=== PATIENT | male | born 1950 | race Caucasian/White ===

== ENCOUNTER 2023-03-07 22:02 | Emergency (ER) | payer BC, SELFPAY ==
--- NOTE | 2023-03-07 22:00 | DI.CT_ITS ---
Exam(s) CT CAROTID NECK CTA EXAM: CT CAROTID NECK CTA CLINICAL HISTORY: dog bit throat. TECHNIQUE: Imaging Protocol: Axial CT angiography was performed with multi-slice acquisition and mu lti-planar and/or 3D reconstructions. CONTRAST MATERIAL: Intravenous: Omnipaque 350 Contrast volume:structured data in ml COMPARISON: No exams were available for comparison FINDINGS: CTA NECK W: AORTIC ARCH ANATOMY: Conventional Anterior circulation: Both common carotid arteries ascend with normal luminal diameters. Vessels are intact. No significa nt plaque at the carotid bifurcations and proximal internal carotid arteries and the internal carotid arteries are patent in the upper neck and skull base. No vascular injury evident of these vessels Posterior circulation: Both vertebral arteries originate in conventional fashion off the subclavian arteries and ascend with normal luminal diameters in the foramen transversarium. No evidence of intraluminal thrombus nor di ssection. No significant injury of these vessels evident. At the skull base both vertebral arteries contribute to the formation of the basilar artery. Other: There is soft tissue laceration subjacent to both sides of the mandible and there is air-gas w ithin the submandibular soft tissues in the mandible region as well as on the left side of the neck. No evidence of obvious acute vascular injury. No abscess evident at this time. No obvious radiopaq ue foreign body. IMPRESSION: 1. Prominent soft tissue air-gas but no evidence of significant vascular arterial injury of the helton tid and vertebral arteries. 2. Other findings as above. 3. Follow-up recommended to rule out any developing infection. RADIATION DOSE DELIVERED: 353.2mGy.cm Total DLP DATA REPOSITORY: All CT scans at this facility are submitted to the National Radiology Data Registry (NRDR) Dose Index Registry (DIR) with the [employer] (A[employer]). RADIATION OPTIMIZATION: All CT scans at this facility use at least one of these dose optimization te chniques: automated exposure control; mA and/or kV adjustment per patient size (includes targeted exa ms where dose is matched to clinical indication); or iterative reconstruction.
[2023-03-07 22:08] VITALS: BP 156/68; PULSE 61; RESP 17; TEMP 36.6; O2SAT 98
--- OUTSIDE RECORDS SUMMARY | 2023-03-07 22:25 | XMS_ITS | Continuity of Care Document ---
Author Name Unknown Organization [facility] Address [address] [place] [address] Phone [phone] Care Team Providers Care Language Tutor Name Role Phone YECENIA MAYFIELD M.D. Care Team Information Rec eiver Unavailable Social History Type Date Description Comments Sex Unknown
--- NOTE | 2023-03-07 22:26 | NUR.NOTE ---
Addendum entered by Maureen Maldonado 03/09/23 08:27: 03/09/23 spoke to Sarabjit Reina [facility] and he is aware of the report. Report faxed to Tatiana Carrillo at his request. Original Note: Animal Bite Form faxed to [facility] Clerk, will call health officer on 03/08/23 to report due to hour of ed visit.Nursing Note:
[2023-03-07] MEDS: cefTRIAXone 1 GM VIAL IV (22:30)
[2023-03-07] MEDS: Normal Saline 50 ML (22:31)
[2023-03-07 22:36] LABS: Abs Immature Grans 0.02 10^3/uL (0.0-0.06); Absolute Basophil Count 0.08 10^3/uL (0.0-0.2); Absolute Eosinophil Count 0.27 10^3/uL (0.0-0.7); Absolute Lymphocyte Count 3.43 10^3/uL (1.2-3.4); Absolute Monocyte Count 1.06 10^3/uL (0.1-0.8); Absolute Neutrophil Count 4.61 10^3/uL (1.2-6.7); Basophils % 0.8; Eosinophils % 2.9; HGB 14.5 g/dL (13.5-17.5); Immature Grans % 0.2; Lymphocytes % 36.2; MCH 29.5 pg (27.0-33.0); MCV 90 fL (80-95); Monocytes % 11.2; Neutrophils % 48.7; Platelet Count 235 10^3/uL (130-400); RBC 4.91 10^6/uL (4.36-5.78); RDW 12.9 % (11.8-14.1); RDW-SD 42.9 fL; WBC 9.47 10^3/uL (4.4-10.8)
--- NOTE | 2023-03-07 22:52 | NUR.NOTE ---
Nursing Note: RN washed out wounds on the neck with 1L of NS. No bleeding noted at this time.
[2023-03-07 22:55] LABS: ALT 29 U/L (16-63); AST 25 U/L (15-37); Albumin 3.7 g/dL (3.4-5.0); Alkaline Phosphatase 70 U/L (46-116); Anion Gap 11.3 mmol/L (3-11); BUN 13 mg/dL (7-18); Bilirubin, Total 0.5 mg/dL (0.2-1.0); CO2 24.7 mmol/L (21.0-32.0); CREATININE 0.8 mg/dL (0.70-1.30); Calcium 7.3 mg/dL (8.5-10.1); Chloride 110 mmol/L (98-107); Estimated GFR 95.21 (mL/min/1.73m2); Glucose 91 mg/dL (74-106); Potassium 3.4 mmol/L (3.5-5.1); Sodium 146 mmol/L (136-145); Total Protein 6.4 g/dL (6.4-8.2)
[2023-03-07] MEDS: Omnipaque 350 MG/ML 100 ML BTL IJ (23:01)
[2023-03-07] MEDS: Normal Saline - Diluent 50 ML VIAL IJ (23:02)
--- NOTE | 2023-03-07 23:37 | ED.GENADUL_ITS ---
Discharge Plan Disposition Patient Disposition: Home Discharge Details Clinical Impression: Animal bite Primary Care Provider: [place],Local ED Provider: Minh Silverio Home Meds and New Rx's Prescriptions: New amoxicillin-pot clavulanate 875-125 mg tablet 1 tab PO Q8H 10 Days Qty: 30 0RF Discharge Instructions Instructions: Animal Bite (ED) Additional Instructions: Stable removal in 10 days Medical Decision Making Patient with multiple puncture wounds to the anterior neck. They all appear superficial. However given the proximity to the vasculature of the neck into the airway will obtain CT angio of the neck to rule out vascular injury. Possible injury to one of the thyroid arteries. Bleeding has been controlled. We will instruct the nurse to irrigate the wound and will consider loose approximation if absolutely necessary. Will administer dose of Rocephin IV and likely discharge patient on antibiotics if there is no vascular or structural injury of significance. Differential Diagnosis Differential Diagnosis: Carotid injury/tracheal injury/thyroid injury/dog bite Imaging Data Radiologic Study: Imaging: CT Scan My impression: No obvious vascular injury, plenty of subcutaneous gas HPI General Date/Time Provider Initiated Documentation: 03/07/23 22:12 . HPI Narrative: Patient was reaching down to interact with the dog when the dog bit him in the neck. This happened just before arrival. He had excessive bleeding and used compression to control the bleeding. By the time he arrived to the emergency department there is no further bleeding. Did not irrigate the wound before arrival. No pulsatile bleeding noted. No airway compromise or issues. No sensation of liquid inside the pharynx such as from bleeding. Related Data Home Medications Medication Instructions Recorded Confirmed amoxicillin 875 mg-potassium 1 tab PO Q8H 10 days #30 tabs 03/08/23 clavulanate 125 mg tablet Previous Rx's Medication Instructions Recorded amoxicillin 875 mg-potassium 1 tab PO Q8H 10 days #30 tabs 03/08/23 clavulanate 125 mg tablet General Stated Complaint: AnimalBite AMY: 3 Review of Systems Narrative: CONST: Negative for fever, body aches and chills. HENT: Negative for neck pain/stiffness, headache, congestion, sore throat, swelling. EYES: Negative for discharge/pain or vision changes. RESP: Negative for cough/hemoptysis and shortness of breath. CV: Negative chest pain, difficulty breathing, palpitations. ABD: Negative pain, nausea, vomiting. : Negative increase frequency, dysuria, blood in urine or stool. MUSC: Negative for muscle aches, edema. SKIN: NEURO: Negative headache, dizziness, weakness. PFSH All Active Problems (Updated 03/07/23 @ 23:42 by Minh Silverio MD) Animal bite (Acute) Social History Smoking/Tobacco Use Status: Never Smoking risk assessment performed?: Yes Alcohol Intake: current Alcohol Intake frequency: a few times a week Drug use: Occasionally Substance use type: marijuana Do you feel safe at home: Yes Do you feel safe in your relationship?: Yes Exam Narrative Exam Narrative: GENERAL APPEARANCE NAD, activity normal for age, well developed/ well nourished, no cyanosis, pallor, or diaphoresis. EYES lids/conjunctiva normal. EARS/NOSE/THROAT Mucous membranes moist, nares normal, lips/teeth normal uvula midline without oral pharyngeal erythema, exudate or swelling No lymphangitis/lymphedema. HEAD/NECK no evident arterial bleed. No stridor. No gross deformity. No obvious hematoma or ecchymosis. RESPIRATORY respiratory effort normal, speaks in full sentences, no tripod position, no accessory muscle use. Lungs clear to auscultation without rhonchi, wheezes, rales CARDIAC Regular rate and rhythm, no edema. ABDOMINAL Soft, ND/NT. No evidence of fluid wave. No pulsatile masses on exam, rebound tenderness, De Jesus sign or pain over Mcburney's point. MUSCLES/EXTREMITIES No abnormal range of motion, no swelling. SKIN multiple lacerations over the anterior mandible and anterior neck. Largest wound over the right anterior neck. NEUROLOGICAL Speech is clear and appropriate. Normal level of consciousness. Gait and coordination are normal. 5/5 strength in all extremities. PSYCH Normal mood and affect. Judgement/competence is appropriate Course Reevaluation(s) Time: 00:18 Reevaluation: CT scan of the neck did not show any injury to vascular structures or to the airway. Patient tolerated laceration closure well it was left loose on purpose given the degree of contamination. We will discharge patient home on Augmentin and he will get a tetanus booster now. Vital Signs Vital signs: Vital Signs Temperature 36.6 C 03/07/23 22:08 Pulse 61 03/07/23 22:08 Respiratory Rate 17 03/07/23 22:08 Blood Pressure 156/68 H 03/07/23 22:08 Pulse Oximetry 98 03/07/23 22:08 Temperature 36.6 C 03/07/23 22:08 Temperature Source Temporal Artery Scan 03/07/23 22:08 Pulse 61 03/07/23 22:08 Respiratory Rate 17 03/07/23 22:08 Respiratory Effort Normal 03/07/23 22:12 Blood Pressure 156/68 H 03/07/23 22:08 Blood Pressure Position Sitting 03/07/23 22:08 Pulse Oximetry 98 03/07/23 22:08 Oxygen Delivery Method Room Air 03/07/23 22:08 Oxygen Flow Rate 0 03/07/23 22:08 Pain Level 5 03/07/23 22:08 Lab/Test Results Lab/Test Results: Laboratory Tests Range/Units 03/07/23 03/07/23 22:25 22:25 WBC (4.4-10.8) 10^3/uL 9.47 RBC (4.36-5.78) 10^6/uL 4.91 Hgb (13.5-17.5) g/dL 14.5 Hct (40.0-50.0) % 44.0 MCV (80-95) fL 90 MCH (27.0-33.0) pg 29.5 MCHC (32.0-36.0) % 33.0 RDW (11.8-14.1) % 12.9 Plt Count (130-400) 10^3/uL 235 MPV (8.0-11.0) fL 10.0 Immature Gran % 0.2 Neutrophils % 48.7 Lymphocytes % 36.2 Monocytes % 11.2 Eosinophils % 2.9 Basophils % 0.8 Nucleated RBC % (0.0-0.3) % 0.0 Absolute Neutrophils (1.2-6.7) 10^3/uL 4.61 Absolute Lymphocytes (1.2-3.4) 10^3/uL 3.43 H Absolute Monocytes (0.1-0.8) 10^3/uL 1.06 H Absolute Eosinophils (0.0-0.7) 10^3/uL 0.27 Absolute Basophils (0.0-0.2) 10^3/uL 0.08 Sodium (136-145) mmol/L 146 H Potassium (3.5-5.1) mmol/L 3.4 L Chloride (98-107) mmol/L 110 H Carbon Dioxide (21.0-32.0) mmol/L 24.7 Anion Gap (3-11) mmol/L 11.3 H BUN (7-18) mg/dL 13 Creatinine (0.70-1.30) mg/dL 0.8 Est GFR (CKD-EPI 2020) (mL/min/1.73m2) 95.21 Glucose (74-106) mg/dL 91 Calcium (8.5-10.1) mg/dL 7.3 L Total Bilirubin (0.2-1.0) mg/dL 0.5 AST (15-37) U/L 25 ALT (16-63) U/L 29 Alkaline Phosphatase (46-116) U/L 70 Total Protein (6.4-8.2) g/dL 6.4 Albumin (3.4-5.0) g/dL 3.7 Procedures Laceration Laceration 1: Site: neck Side (If applicable): right Size (cm): 2 Description: flap Depth: simple, single layer Local Anesthetic: Lidocaine 1% Amount of anesthesia used (mL): 1 Pre-repair: irrigated extensively and deep structures intact Skin layer closed with: other (2 emilee)
--- NOTE | 2023-03-07 23:39 | DI.VRAD_ITS ---
PROCEDURE INFORMATION: Exam: CTA Neck With Contrast Exam date and time: 03/07/2023 11:03 PM Age: 72 years old Clinical indication: Injury or trauma; Crushing and puncture and wound, open; Not specified; Neck; Injury date: 03/07/23; Injury details: Dog bite to throat TECHNIQUE: Imaging protocol: Computed tomographic angiography of the neck with contrast. 3D rendering (Not supervised by radiologist): MIP and/or 3D reconstructed images were created by the technologist. Contrast material: OMNIPAQUE 350; Contrast volume: 85 ml; Contrast route: INTRAVENOUS (IV); COMPARISON: No relevant prior studies available. FINDINGS: Right common carotid artery: Normal. No stenosis. No dissection or occlusion. Right internal carotid artery: Mild tortuosity. No stenosis. No dissection or occlusion. Right external carotid artery: Normal. No stenosis. No dissection or occlusion. Left common carotid artery: Normal. No stenosis. No dissection or occlusion. Left internal carotid artery: Mild tortuosity. No stenosis. No dissection or occlusion. Left external carotid artery: Normal. No stenosis. No dissection or occlusion. Right vertebral artery: Normal. No stenosis. No dissection or occlusion. Left vertebral artery: Mild proximal tortuosity. No stenosis. No dissection or occlusion. Brachiocephalic artery: The brachiocephalic artery is unremarkable. Right subclavian artery: The right subclavian artery is unremarkable. Left subclavian artery: The left subclavian artery is unremarkable. Aorta: The visualized aortic arch demonstrates mild-moderate ectasia/tortuosity without evidence of dissection or gross aneurysm. Paranasal sinuses: Mucous retention cyst versus polyp formation in the left maxillary sinus suggesting mild chronic sinus inflammatory disease. No fluid levels. Visualized paranasal sinuses are otherwise clear. Thyroid: The thyroid gland is unremarkable. Soft tissues: Soft tissue swelling and laceration around the left jaw line and under the chin with air tracking into the submandibular space bilaterally consistent with penetration of the platysma musculature, with a small subcutaneous hematoma on series 5, image 395 measuring 2 x 1.3 x 0.7 cm, estimated volume 2 mL. No penetration of the sublingual space. No retained foreign body. No evidence of active hemorrhage or pseudoaneurysm. Bones/joints: No acute osseous abnormalities are identified. Moderate disc degenerative changes C4-C5 through C6-C7. Slight degenerative anterolisthesis C2-C3 and C3-C4, with moderate left-sided osteoarthritic facet hypertrophy C3-C4. Mild canal stenosis C5-C6. Moderate-severe bilateral foraminal stenoses C3-C4 through C6-C7. Lungs: The visualized pulmonary apices are clear. IMPRESSION: 1. No vascular injuries. No evidence of arterial occlusion, significant stenosis, dissection, or aneurysm/pseudoaneurysm. No evidence of active hemorrhage. 2. Soft tissue laceration and swelling around the left jaw line and below the chin consistent with the history of dog bite injury, which penetrates into the submandibular space but does not penetrate the sublingual space. No retained foreign bodies. Small subcutaneous hematoma of about 2 mL. REFERENCES: NASCET CRITERIA. The degree of stenosis in the cervical segment of the internal carotid artery is based on NASCET criteria. Normal is no stenosis. Mild is less than 50% stenosis. Moderate is 50-69% stenosis. Severe is 70% to 99% stenosis. Total occlusion is no detectable patent lumen. Dictated and Authenticated by: Mati Mckeon MD. Ordering:CARMELITA Wilkinson MD
[2023-03-08 00:50] VITALS: PULSE 72; RESP 16; O2SAT 98
--- NOTE | 2023-03-08 09:22 | NUR.NOTE ---
Addendum entered by Maureen Maldonado 03/08/23 09:30: Pharmacy questioned the 3x a day, per Dr Huerta to fill as directed. While on the phone the prescription did come through. Original Note: Nursing Note: Patient called stating that the pharmacy told him that they did not have his prescription. I checked the status of the transmission and it said received. He will call again and if they still do not have it will have them call so that it can be given by phone.
== END 2023-03-08 00:51 | disposition home or self-care (01) ==
PROVIDERS: Emergency Provider Emergency Medicine
DX: S10.97XA Other superficial bite of unspecified part of neck, initial encounter (principal); W54.0XXA Bitten by dog, initial encounter
CPT/HCPCS: 70498; 80053; 90471; 96374; 99285; 85025; 99284; J0696; J3490